=== PATIENT | female | born 1945 | race Caucasian/White ===

== ENCOUNTER 2022-01-28 14:36 | Outpatient (CLI) | payer MEDICARE | END 2022-01-28 14:37 | disposition home or self-care (01) | LOC: CSHULT 14:36 | PROVIDERS: ATTEND Family Medicine | DX: R22.1 Localized swelling, mass and lump, neck (principal) | CPT/HCPCS: 76536 ==

== ENCOUNTER 2022-09-16 07:54 | Outpatient (CLI) | payer MEDICARE | END 2022-09-16 07:55 | disposition home or self-care (01) | LOC: CSHMRI 07:54 | PROVIDERS: ATTEND Specialist | DX: M48.062 Spinal stenosis, lumbar region with neurogenic claudication (principal) | CPT/HCPCS: 72148 ==